=== PATIENT | female | born 1990 | race Caucasian/White ===

== ENCOUNTER → 2017-07-05 | Outpatient (CLI) | payer OTHER ==
[~2017-07-05] MED LIST: ACHD5005 PO; AMOX500T2 PO; DOCU100C37 PO; FAMO-119 PO; FERR325T18 PO; IBUP-1773 PO; PNT40TEC PO; PREN1TAB71 PO; PROM25SU10 PR
--- NOTE | 2017-07-06 13:35 | Diagnostic Imaging Report ---
INDICATION: Size and dates. TECHNIQUE: Multiple real-time grayscale images were obtained over the gravid uterus. COMPARISON: No prior examinations are available for comparison. FINDINGS: There is a single living intrauterine in a cephalic presentation. There is a normal volume of amniotic fluid. Placenta is posterior. There is no previa. The anatomical survey is unremarkable. The heart rate is 150 beats per minute. The biometry correlates with a gestational age of 19 weeks 2 days. Adnexa are grossly unremarkable. IMPRESSION: Single living intrauterine with a sonographically estimated gestational age of 19 weeks 2 days and estimated date of confinement of November 27, 2017. Dictated by: Dictated on workstation # [id number]
== END ==
LOC: RAD 16:06
PROVIDERS: ATTEND Obstetrics & Gynecology
DX: Z34.92 Encounter for supervision of normal pregnancy, unspecified, second trimester (principal); Z3A.19 19 weeks gestation of pregnancy
CPT/HCPCS: 76805

== ENCOUNTER 2017-08-15 23:21 | Outpatient (CLI) | payer OTHER ==
[~2017-08-15] VITALS: Ht 165.1 cm; Wt 63.1 kg
[2017-08-15 23:35] VITALS: BP 131/79
[2017-08-15] MEDS ORDERED: CETI10CA PO (23:58)
[2017-08-16] MEDS ORDERED: ONDANSETRON 4 MG/2 ML (SDV) Z0FRAN IVP ONE
[2017-08-16] MEDS ORDERED: D5 LR IV SOLUTION 1,000 ML IV ONE
[2017-08-16 00:30] LABS: BASOPHILS % (AUTO) 0 % (0-10); EOSINOPHILS % (AUTO) 0 % (0-10); HEMATOCRIT 34 % (35-52); HEMOGLOBIN 11.6 G/DL (11.5-16.0); LYMPHOCYTES # (AUTO) 0.5 X 10^3 (1.0-4.0); LYMPHOCYTES % (AUTO) 4 % (12-44); MEAN CORPUSCULAR HEMOGLOBIN 32 PG (25-34); MEAN CORPUSCULAR HGB CONC 34 G/DL (32-36); MEAN CORPUSCULAR VOLUME 95 FL (80-99); MEAN PLATELET VOLUME 10.1 FL (7.4-10.4); MONOCYTES # (AUTO) 0.4 X 10^3 (0.0-1.0); MONOCYTES % (AUTO) 3 % (0-12); NEUTROPHILS # (AUTO) 11.4 X 10^3 (1.8-7.8); NEUTROPHILS % (AUTO) 92 % (42-75); PLATELET COUNT 159 10^3/uL (130-400); RED BLOOD COUNT 3.61 10^6/uL (4.35-5.85); RED CELL DISTRIBUTION WIDTH 12.2 % (10.0-14.5); WHITE BLOOD COUNT 12.3 10^3/uL (4.3-11.0)
[2017-08-16 00:46] LABS: ALANINE AMINOTRANSFERASE 14 U/L (0-55); ALBUMIN 3.6 GM/DL (3.2-4.5); ALKALINE PHOSPHATASE 67 U/L (40-136); BAND NEUTROPHILS 0 %; BASOPHILS % (MANUAL) 0 %; BILIRUBIN,TOTAL 0.6 MG/DL (0.1-1.0); BUN/CREATININE RATIO 16; CALCIUM 8.1 MG/DL (8.5-10.1); CARBON DIOXIDE 18 MMOL/L (21-32); CHLORIDE 108 MMOL/L (98-107); CREATININE SERUM 0.56 MG/DL (0.60-1.30); EOSINOPHILS % (MANUAL) 1 %; GFR ESTIMATED > 60; GLUCOSE 82 MG/DL (70-105); LYMPHOCYTES % (MANUAL) 8 %; MONOCYTES % (MANUAL) 4 %; NEUTROPHILS % (MANUAL) 86 %; POTASSIUM 3.4 MMOL/L (3.6-5.0); RBC MORPH NORMAL; REACTIVE LYMPHOCYTES 1 %; SODIUM 137 MMOL/L (135-145); TOTAL PROTEIN 6.8 GM/DL (6.4-8.2)
[2017-08-16 00:48] LABS: BILIRUBIN,URINE NEGATIVE (NEGATIVE); CLARITY,URINE CLEAR; COLOR,URINE YELLOW; GLUCOSE, URINE (UA) NEGATIVE (NEGATIVE); KETONES,URINE 3+ (NEGATIVE); LEUKOCYTE ESTERASE ,URINE NEGATIVE (NEGATIVE); NITRITE,URINE NEGATIVE (NEGATIVE); PH,URINE 6 (5-9); PROTEIN,URINE 1+ (NEGATIVE); UROBILINOGEN,URINE NORMAL (NORMAL)
[2017-08-16 00:57] LABS: WBC,URINE RARE /HPF
[2017-08-16 00:58] LABS: BACTERIA,URINE TRACE /HPF
[2017-08-16 02:00] VITALS: BP 111/61
[2017-08-16] MEDS ORDERED: ACETAMINOPHEN 500 MG TAB (TYLENOL) ONE (04:02)
[2017-08-16] MEDS ORDERED: D5 LR IV SOLUTION 1,000 ML IV SCH (04:15)
[2017-08-16] MEDS ORDERED: ACETAMINOPHEN 500 MG TAB (TYLENOL) PO ONE (04:15)
[2017-08-16 07:23] VITALS: BP 105/59
--- NOTE | 2017-08-16 16:56 | Physician Query-Final Dx ---
EVANGELINA SHEARER 08/16/17 1656: Clinic Account Progress/Dx Physician Query: Please give diagnosis Date of Service Aug 15, 2017 at 23:21 GEORGE BROWN MD 08/17/17 0753: Clinic Account Progress/Dx DIAGNOSIS: Diagnosis Hyperemesis EVANGELINA SHEARER Aug 16, 2017 16:56 GEORGE BROWN MD Aug 17, 2017 07:53
== END 2017-08-16 07:35 | disposition home or self-care (01) ==
LOC: WSo 23:21 → LDRP 23:21 → WSo 08-16 07:35
PROVIDERS: ATTEND Obstetrics & Gynecology
DX: O21.2 Late vomiting of pregnancy (principal); Z3A.25 25 weeks gestation of pregnancy
CPT/HCPCS: 36415; 80053; 81000; 85007; 85027; 96361; 96374; 99213

== ENCOUNTER 2017-11-13 22:12 | Outpatient (CLI) | payer OTHER ==
[~2017-11-13 22:12] MED LIST changes: +CETI10CA PO
[2017-11-13 23:00] VITALS: BP 123/79
--- NOTE | 2017-11-14 15:50 | Physician Query-Final Dx ---
KASANDRA SANCHEZ 11/14/17 1550: Clinic Account Progress/Dx Physician Query: Please give diagnosis Date of Service Nov 13, 2017 at 22:12 GAVIN LOMAS DO 11/14/17 1839: Clinic Account Progress/Dx DIAGNOSIS: Diagnosis 38 week IUP Pelvic pressure KASANDRA SANCHEZ Nov 14, 2017 15:50 GAVIN LOMAS DO Nov 14, 2017 18:39
== END 2017-11-13 23:45 | disposition home or self-care (01) ==
LOC: WSo 22:12 → LDRP 22:13 → WSo 23:45
PROVIDERS: ATTEND Obstetrics & Gynecology
DX: O99.89 Other specified diseases and conditions complicating pregnancy, childbirth and the puerperium (principal); R10.2 Pelvic and perineal pain; Z3A.38 38 weeks gestation of pregnancy
CPT/HCPCS: 99212

== ENCOUNTER 2017-11-16 17:09 | Inpatient (IN) | payer OTHER ==
[~2017-11-16] VITALS: Ht 165.1 cm; Wt 73.0 kg
[2017-11-16] VITALS (27 sets, daily range): BP systolic 106–149; BP diastolic 58–82
[2017-11-16] MEDS ORDERED: LACTATED RINGERS 1,000 ML IV ONE ×3 (18:46→22:16)
[2017-11-16] MEDS ORDERED: D5 LR IV SOLUTION 1,000 ML IV ONE (18:46)
[2017-11-16] MEDS ORDERED: D5 LR IV SOLUTION 1,000 ML IV SCH (18:54)
[2017-11-16] MEDS ORDERED: MINERAL OIL CONCENTRATE 99.9% 15 ML UDC TOP PRN (19:00)
[2017-11-16] MEDS ORDERED: fentaNYL INJECTION 100 MCG/2 ML AMP ONE (19:06)
[2017-11-16] MEDS ORDERED: BUPIVACAINE 0.25% 30 ML (SENSORCAINE) VIAL ONE (19:07)
[2017-11-16 19:11] LABS: BASOPHILS % (AUTO) 0 % (0-10); EOSINOPHILS # (AUTO) 0.1 10^3/uL (0.0-0.3); EOSINOPHILS % (AUTO) 1 % (0-10); HEMATOCRIT 37 % (35-52); HEMOGLOBIN 12.8 G/DL (11.5-16.0); LYMPHOCYTES # (AUTO) 1.6 X 10^3 (1.0-4.0); LYMPHOCYTES % (AUTO) 14 % (12-44); MEAN CORPUSCULAR HEMOGLOBIN 32 PG (25-34); MEAN CORPUSCULAR HGB CONC 34 G/DL (32-36); MEAN CORPUSCULAR VOLUME 93 FL (80-99); MEAN PLATELET VOLUME 10.7 FL (7.4-10.4); MONOCYTES # (AUTO) 0.9 X 10^3 (0.0-1.0); MONOCYTES % (AUTO) 8 % (0-12); NEUTROPHILS # (AUTO) 8.9 X 10^3 (1.8-7.8); NEUTROPHILS % (AUTO) 77 % (42-75); PLATELET COUNT 153 10^3/uL (130-400); RED CELL DISTRIBUTION WIDTH 13.9 % (10.0-14.5); WHITE BLOOD COUNT 11.5 10^3/uL (4.3-11.0)
[2017-11-16] MEDS ORDERED: SUFENTA 0.6MCG/ML BUPIVA 0.125 100 ML ONE (19:17)
--- NOTE | 2017-11-16 19:19 | History & Physical-OB ---
OB - Chief Complaint & HPI Date/Time Date of Admission: Date of Admission: 11/16/2017 Time Seen by Provider: 18:35 Chief Complaint/History OB-Reason for Admission/Chief: Onset of Labor Hx : 2 Hx Para: 1 Expected Date of Delivery: Nov 22, 2017 Gestational Age in Weeks: 39 Gestational Age in Days: 1 Admission Nurse Assessment Rev: Yes History of Labs O pos Antibody neg RI RPR NR HBsAg NR HCAg NR GC neg GBS neg Allergies and Home Medications Allergies Coded Allergies: No Known Drug Allergies (Unverified , 07/25/14) Home Medications Cetirizine HCl 10 Mg Capsule, 10 MG PO DAILY, (Reported) Famotidine 20 Mg Tablet, 20 MG PO BID, (Reported) Patient Home Medication List Home Medication List Reviewed: Yes OB - History Hx of Present Care: Yes Ultrasounds: Normal mid trimester US Obstetrical Complications: None Medical Complications: None Delivery History Hx Blood Disorders: No Adverse Rxn to Tranfusion: No Patient Past Medical History none Social History/Family History HIV/AIDS: No Recent Infectious Disease Expo: No Sexually Transmitted Disease: No OB - Admission Exam Physical Exam HEENT: NCAT Heart: Rhythm Normal Lungs: Clear Abdomen: Gravid Extremities: Normal Reflexes: Normal Cervical Dilatation: 5cm Effacement: 75% Station: -1 Membranes: Intact Heart Rate: 130's Accelerations: Accelerations Present Decelerations: No Decelerations Short Term Variability: Present Composing Machine Operator/Tender Variability: Average (6-25) Contractions on Admission: < 5 Minutes Apart Intensity: Moderate Labs Laboratory Tests Test 11/16/17 18:35 Range/Units OB - Assessment/Plan/Diagnosis Assessment Assessment: active labor Admission Dx 27 yo @ 39.1 Active Labor TOLAC GBS neg Admission Status: Inpatient Order (span 2 midnights) Reason for Inpatient Admission: 27 yo @ 39.1 Active Labor TOLAC GBS neg Plan Plan: Expectant Management Induction Method: GAVIN SAINZ DO Nov 16, 2017 7:19 pm
[2017-11-16] MEDS ORDERED: OXYTOCIN/NORMAL SALINE 500 ML IV ONE (20:33)
[2017-11-16] MEDS ORDERED: LIDOCAINE/EPI 2% 1:200,00 (XYLOCAINE) 10 ML VIAL ONE (20:34)
[2017-11-16] MEDS ORDERED: OXYTOCIN/NORMAL SALINE 500 ML IV SCH (21:08)
--- NOTE | 2017-11-16 21:12 | OB Labor & Delivery Record ---
L&D History Date of Service Date of Service: Nov 16, 2017 History Expected Date of Delivery: Nov 22, 2017 Gestational Age in Weeks: 39 Hx : 2 Hx Para: 1 Complications Events: Routine care Operative Indications (Cesarea: N/A-Vaginal Delivery Intrapartal Events: None L&D Stage1 Stage One Onset of Labor - Date: Nov 16, 2017 Monitors and Tracing Monitor Mode: External Heart Rate: 140 Monitor Decelerations: None Station: -1 Penitentiary Variability: Average (6-10) Short Term Variability: Present Presentation: Vertex Vital Signs VS - Last 72 Hours, by Label 11/16/17 17:33 Temp 98.4 Pulse 95 Resp 16 O2 Delivery Room Air Rupture of Membranes Spontaneous Ruture of Membrane: No Amniotic Membrane Rupture Time: 1899 Amniotic Membrane Fluid Desc.: Clear Vaginal Bleeding Description: Normal Show Induction/Anesthesia Epidural Cath Placement - Time: 1928 Progress/Notes Patient progressed to complete and +2 station shortly after epidural obtained, without any augmentation other than AROM L&D Stage2 Stage Two Stage II Date: Nov 16, 2017 Monitors and Tracing Monitor Mode: External Heart Rate: 140 Monitor Accelerations: Uniform Monitor Decelerations: Variable Residential Building Inspector Variability: Average (6-10) Short Term Variability: Present Position: Right Occiput Anterior Presentation: Vertex Cord Descript/Complications Cord Vessel Description: 3 Vessels Delivery Type Infant Delivery Method: Spontaneous Vaginal Anterior Shoulder: Left Episiotomy/Perineal Laceration Laceraction(s)/Extensions: Yes Episiotomy Description: Midline Degree (describe repair) midline episiotomy repaired using 3-0 and 2-0 vicryl suture in usual fashion Condition of Infant Delivery 1 minute Comment: 8 5 minute Comment: 9 Notes live female infant weight pending. Condition of Condition of : Living Exam: No Observed Abnormalities Resuscitation Resuscitation: N/A - Spontaneous Resp L&D Stage3 Stage Three Stage III Date: Nov 16, 2017 Pictocin Pitocin Administration Comment: 30 mu wide open at delivery of placenta Placenta Delivery Placenta Delivery: Spontaneous Delivery Summary Summary Estimated blood loss (mL): 400 Attending at delivery: Gavin Lomas DO Condition of Delivery Examined: Cervix Examined, Uterus Explored Post Hemorrhage: No Condition of Mother stable Condition of (s) stable GAVIN LOMAS DO Nov 16, 2017 21:12
--- NOTE | 2017-11-16 21:13 | Discharge Inst-Women's Service ---
Discharge Inst-Women's Serv Depart Medication/Instructions New, Converted or Re-Newed RX: RX on Chart Consults/Follow Up Additional Follow Up: Yes Orders/Referrals Dr. Lomas in 6 weeks Activity Activity: Activity as Tolerated Driving Instructions: No Driving for 1 Week NO SMOKING: NO SMOKING Nothing Inside Vagina: No Douching, No Cameron, No Tampons Diet Discharge Diet: No Restrictions Symptoms to Report to : Bleeding Excessive, Pain Increased, Fever Over 101 Degrees F, Vaginal Bleeding Increase, Questions/Concerns For Any Problems or Questions: Contact Your Physician GAVIN LOMAS DO Nov 16, 2017 21:13
[2017-11-16] MEDS ORDERED: IBUP-844 PO (21:15)
[2017-11-16] MEDS ORDERED: ACHD5005 PO (21:15)
[2017-11-16] MEDS ORDERED: TETANUS,DIPTH,PERTUSS P/F (BOOSTRIX) 0.5 ML VIAL IM ONE (21:15)
[2017-11-16] MEDS ORDERED: MEASLES,MUMPS,RUBELLA 1 EA INJ SQ ONE (21:15)
[2017-11-16] MEDS ORDERED: DIBUCAINE (NUPERCAINAL) 1% OINT 30 GM TOP PRN (21:15)
[2017-11-16] MEDS ORDERED: FERR325T18 PO (21:15)
[2017-11-16] MEDS ORDERED: DOCU100C37 PO (21:15)
[2017-11-16] MEDS ORDERED: Benzocaine/Menthol TP (21:15)
[2017-11-16] MEDS ORDERED: DIBU30OI TOP (21:15)
[2017-11-16] MEDS ORDERED: HYDROcodone/APAP 5 MG/325 MG (LORTAB) TAB PO PRN (21:15)
[2017-11-16] MEDS ORDERED: BENZOCAINE/MENTHOL (DERMOPLAST) 56 ML CAN TP PRN (21:15)
[2017-11-16] MEDS: WITCH HAZEL(TUCKS) 40 EA JAR TOP PRN (21:33)
[2017-11-16] MEDS: IBUPROFEN 600 MG (MOTRIN) TAB PO SCH (21:33)
[2017-11-16] MEDS: CATHETER FLUSH 10 ML SYR IV SCH (22:00)
[2017-11-16] MEDS ORDERED: CATHETER FLUSH 10 ML SYR IV SCH (22:00)
[2017-11-16] MEDS ORDERED: ONDANSETRON 4 MG/2 ML (SDV) Z0FRAN IV PRN (22:30)
[2017-11-16] MEDS ORDERED: EPIDURAL (SUFENTA 0.6MCG/ML BUPIVA 0.125%) 100 ML BAG EPI PRN (22:30)
[2017-11-16] MEDS ORDERED: NALOXONE 0.4 MG/ML 1 ML (NARCAN) VIAL IV PRN (22:30)
[2017-11-17] MEDS: CATHETER FLUSH 10 ML SYR IV SCH (03:45)
[2017-11-17] MEDS: IBUPROFEN 600 MG (MOTRIN) TAB PO SCH ×4 (03:45→22:01)
[2017-11-17] MEDS ORDERED: CALCIUM CARBONATE 500 MG (TUMS) TAB.CHEW ONE (03:48)
[2017-11-17 04:00] VITALS: BP 102/55
[2017-11-17 05:49] LABS: BASOPHILS % (AUTO) 0 % (0-10); EOSINOPHILS # (AUTO) 0.1 10^3/uL (0.0-0.3); EOSINOPHILS % (AUTO) 1 % (0-10); HEMATOCRIT 32 % (35-52); HEMOGLOBIN 11.1 G/DL (11.5-16.0); LYMPHOCYTES % (AUTO) 15 % (12-44); MEAN CORPUSCULAR HEMOGLOBIN 33 PG (25-34); MEAN CORPUSCULAR HGB CONC 35 G/DL (32-36); MEAN CORPUSCULAR VOLUME 93 FL (80-99); MEAN PLATELET VOLUME 10.8 FL (7.4-10.4); MONOCYTES # (AUTO) 1.3 X 10^3 (0.0-1.0); MONOCYTES % (AUTO) 10 % (0-12); NEUTROPHILS # (AUTO) 9.8 X 10^3 (1.8-7.8); NEUTROPHILS % (AUTO) 74 % (42-75); PLATELET COUNT 143 10^3/uL (130-400); RED BLOOD COUNT 3.39 10^6/uL (4.35-5.85); RED CELL DISTRIBUTION WIDTH 13.7 % (10.0-14.5); WHITE BLOOD COUNT 13.2 10^3/uL (4.3-11.0)
--- NOTE | 2017-11-17 07:51 | Postpartum Progress Note ---
Note Note Day # 1 Subjective: Patient is without complaints. Ambulating, voiding. Tolerating a regular diet without nausea or vomiting. Normal lochia. Pain is well controlled with oral pain medications. Objective: Vital Sign - Last 24 Hours 11/16/17 11/16/17 11/16/17 11/16/17 17:33 19:25 19:28 19:31 Temp 98.4 97.2 Pulse 95 93 89 86 Resp 16 18 18 18 B/P (MAP) 133/79 (97) 127/76 (93) 131/77 (95) Pulse Ox 100 100 O2 Delivery Room Air Room Air 11/16/17 11/16/17 11/16/17 11/16/17 19:34 19:37 19:40 19:43 Pulse 92 94 77 113 Resp 18 18 18 18 B/P (MAP) 126/72 (90) 123/68 (86) 126/76 (93) 149/78 (101) Pulse Ox 100 100 100 100 11/16/17 11/16/17 11/16/17 11/16/17 19:50 19:55 20:00 20:10 Temp 97.8 Pulse 100 74 76 75 Resp 18 18 18 18 B/P (MAP) 126/71 (89) 135/65 (88) 129/61 (83) 106/58 (74) Pulse Ox 100 100 100 100 11/16/17 11/16/17 11/16/17 11/16/17 20:25 20:35 20:45 20:55 Pulse 118 126 137 106 Resp 18 18 18 18 B/P (MAP) 110/71 (84) 111/82 (92) 128/75 (92) 128/71 (90) Pulse Ox 100 100 100 100 11/16/17 11/16/17 11/16/17 11/16/17 21:08 21:25 21:40 21:55 Pulse 98 84 88 79 Resp 18 18 18 18 B/P (MAP) 118/66 (83) 110/62 (78) 116/60 (78) 115/63 (80) Pulse Ox 100 100 100 100 11/16/17 11/16/17 11/16/17 11/16/17 22:10 22:22 22:37 22:53 Temp 97.2 Pulse 88 82 99 127 Resp 18 18 18 18 B/P (MAP) 120/67 (84) 109/64 (79) 111/67 (82) 126/77 (93) Pulse Ox 100 11/16/17 11/16/17 11/16/17 11/16/17 23:07 23:22 23:37 23:52 Temp 97.8 Pulse 114 102 104 108 Resp 18 18 18 18 B/P (MAP) 131/81 (98) 107/81 (90) 110/71 (84) 119/74 (89) 11/17/17 04:00 Temp 97.8 Pulse 76 Resp 18 B/P (MAP) 102/55 (71) Intake and Output 11/16/17 11/16/17 11/17/17 15:00 23:00 07:00 Intake Total 1500 ml 1300 ml Output Total 200 ml Balance 1300 ml 1300 ml Physical Exam: General - Alert and oriented, no apparent distress Abdomen - Soft, appropriately tender to palpation, non-distended, fundus firm at umbilicus Extremities - no edema, negative Christiane's bilaterally Assessment: PPD 1 NVD- successful Acute blood loss anemia Plan: Routine care. Encourage breast feeding. Encourage ambulation. Ferrous sulfate supplementation. Plan for discharge tomorrow Vitals - Labs Vital Signs - I&O Vital Signs Date Time Temp Pulse Resp B/P (MAP) Pulse Ox O2 Delivery O2 Flow Rate FiO2 11/17/17 04:00 97.8 76 18 102/55 (71) 11/16/17 23:52 97.8 108 18 119/74 (89) 11/16/17 23:37 104 18 110/71 (84) 11/16/17 23:22 102 18 107/81 (90) 11/16/17 23:07 114 18 131/81 (98) 11/16/17 22:53 127 18 126/77 (93) 11/16/17 22:37 99 18 111/67 (82) 11/16/17 22:22 82 18 109/64 (79) 11/16/17 22:10 97.2 88 18 120/67 (84) 100 11/16/17 21:55 79 18 115/63 (80) 100 11/16/17 21:40 88 18 116/60 (78) 100 11/16/17 21:25 84 18 110/62 (78) 100 11/16/17 21:08 98 18 118/66 (83) 100 11/16/17 20:55 106 18 128/71 (90) 100 11/16/17 20:45 137 18 128/75 (92) 100 11/16/17 20:35 126 18 111/82 (92) 100 11/16/17 20:25 118 18 110/71 (84) 100 11/16/17 20:10 75 18 106/58 (74) 100 11/16/17 20:00 76 18 129/61 (83) 100 11/16/17 19:55 74 18 135/65 (88) 100 11/16/17 19:50 97.8 100 18 126/71 (89) 100 11/16/17 19:43 113 18 149/78 (101) 100 11/16/17 19:40 77 18 126/76 (93) 100 11/16/17 19:37 94 18 123/68 (86) 100 11/16/17 19:34 92 18 126/72 (90) 100 11/16/17 19:31 86 18 131/77 (95) 100 11/16/17 19:28 89 18 127/76 (93) 100 11/16/17 19:25 97.2 93 18 133/79 (97) Room Air 11/16/17 17:33 98.4 95 16 Room Air I & O 11/17/17 07:00 Intake Total 2800 ml Output Total 200 ml Balance 2600 ml Labs Laboratory Tests 11/16/17 18:35: White Blood Count 11.5H, Red Blood Count 4.00L, Hemoglobin 12.8, Hematocrit 37, Mean Corpuscular Volume 93, Mean Corpuscular Hemoglobin 32, Mean Corpuscular Hemoglobin Concent 34, Red Cell Distribution Width 13.9, Platelet Count 153, Mean Platelet Volume 10.7H, Neutrophils (%) (Auto) 77H, Lymphocytes (%) (Auto) 14, Monocytes (%) (Auto) 8, Eosinophils (%) (Auto) 1, Basophils (%) (Auto) 0, Neutrophils # (Auto) 8.9H, Lymphocytes # (Auto) 1.6, Monocytes # (Auto) 0.9, Eosinophils # (Auto) 0.1, Basophils # (Auto) 0.0 11/17/17 05:30: White Blood Count 13.2H, Red Blood Count 3.39L, Hemoglobin 11.1L, Hematocrit 32L , Mean Corpuscular Volume 93, Mean Corpuscular Hemoglobin 33, Mean Corpuscular Hemoglobin Concent 35, Red Cell Distribution Width 13.7, Platelet Count 143, Mean Platelet Volume 10.8H, Neutrophils (%) (Auto) 74, Lymphocytes (%) (Auto) 15 , Monocytes (%) (Auto) 10, Eosinophils (%) (Auto) 1, Basophils (%) (Auto) 0, Neutrophils # (Auto) 9.8H, Lymphocytes # (Auto) 2.0, Monocytes # (Auto) 1.3H, Eosinophils # (Auto) 0.1, Basophils # (Auto) 0.0 GAVIN LOMAS DO Nov 17, 2017 7:51 am
[2017-11-17] MEDS: DOCUSATE SODIUM 100 MG (COLACE) CAP PO SCH ×2 (08:46→22:01)
[2017-11-17] MEDS: PRENATAL VITAMIN 1 EA TAB PO SCH (08:46)
[2017-11-17] MEDS: FERROUS SULF 325 MG (IRON) TAB PO SCH (08:46)
[2017-11-17 09:05] VITALS: BP 114/75
[2017-11-17 12:00] VITALS: BP 101/66
[2017-11-17 16:45] VITALS: BP 94/54
[2017-11-17 22:01] VITALS: BP 104/72
[2017-11-18] MEDS: CALCIUM CARBONATE 500 MG (TUMS) TAB.CHEW PO PRN ×2 (00:45→00:46)
[2017-11-18] MEDS: WITCH HAZEL(TUCKS) 40 EA JAR TOP PRN (00:46)
[2017-11-18 04:07] VITALS: BP 110/76
[2017-11-18] MEDS: IBUPROFEN 600 MG (MOTRIN) TAB PO SCH ×2 (04:07→09:56)
[2017-11-18 08:45] VITALS: BP 123/80
[2017-11-18] MEDS: PRENATAL VITAMIN 1 EA TAB PO SCH (08:49)
[2017-11-18] MEDS: DOCUSATE SODIUM 100 MG (COLACE) CAP PO SCH (08:49)
[2017-11-18] MEDS: FERROUS SULF 325 MG (IRON) TAB PO SCH (08:49)
--- NOTE | 2017-11-18 10:16 | Postpartum Progress Note ---
Note Note Day # 2 Subjective: Patient is without complaints. Ambulating, voiding. Tolerating a regular diet without nausea or vomiting. Normal lochia. Pain is well controlled with oral pain medications. Objective: Vital Sign - Last 24 Hours 11/17/17 11/17/17 11/17/17 11/18/17 12:00 16:45 22:01 04:07 Temp 97.9 98.2 98.4 98.2 Pulse 64 67 67 61 Resp 18 18 18 18 B/P (MAP) 101/66 (78) 94/54 (67) 104/72 (83) 110/76 (87) Pulse Ox 98 99 98 98 O2 Delivery Room Air Room Air Room Air Room Air 11/18/17 08:45 Temp 99.0 Pulse 89 Resp 18 B/P (MAP) 123/80 (94) Pulse Ox 97 O2 Delivery Room Air Physical Exam: General - Alert and oriented, no apparent distress Abdomen - Soft, appropriately tender to palpation, non-distended, fundus firm at umbilicus Extremities - no edema, negative Christiane's bilaterally Assessment: PPD 2 NVD Successful Plan: Routine care. Encourage breast feeding. Encourage ambulation. Ferrous sulfate supplementation. Plan for discharge today Vitals - Labs Vital Signs - I&O Vital Signs Date Time Temp Pulse Resp B/P (MAP) Pulse Ox O2 Delivery O2 Flow Rate FiO2 11/18/17 08:45 99.0 89 18 123/80 (94) 97 Room Air 11/18/17 04:07 98.2 61 18 110/76 (87) 98 Room Air 11/17/17 22:01 98.4 67 18 104/72 (83) 98 Room Air 11/17/17 16:45 98.2 67 18 94/54 (67) 99 Room Air 11/17/17 12:00 97.9 64 18 101/66 (78) 98 Room Air GAVIN LOMAS DO Nov 18, 2017 10:16 am
--- NOTE | 2017-11-18 11:57 | Anesthesia-Regional Post-Op ---
Regional Patient Condition Mental Status: Alert, Oriented x3 Circulation: Same as Pre-Op Headache: Absent Sensation: Full Recovery Motor Block: Absent Post Op Complications Complications None Follow Up Care/Instructions Patient Instructions None needed. Anesthesia/Patient Condition Late entry from seeing patient at 1200 on 11/17/17: Patient is doing well, no complaints, stable vital signs, no apparent adverse anesthesia problems. No complications reported per nursing. ALEX MARTINEZ HEAD COUNSELOR Nov 18, 2017 11:57
[2017-11-18 12:15] VITALS: BP 123/80
--- NOTE | 2017-11-21 12:16 | Physician Query-Final Dx ---
SABAS WRIGHT 11/21/17 1216: Final Diagnosis Give Final Diagnosis Please give Final Diagnosis GAVIN LOMAS DO 11/22/17 0725: Final Diagnosis Give Final Diagnosis PPD 2 NVD SABAS WRIGHT Nov 21, 2017 12:16 GAVIN LOMAS DO Nov 22, 2017 07:25
== END 2017-11-18 12:15 | disposition home or self-care (01) | DRG 775 ==
LOC: LDRP 17:09 → WSo 17:09 → LDRP 17:40
PROVIDERS: ADMIT Obstetrics & Gynecology; ATTEND Obstetrics & Gynecology
PROC: 10E0XZZ Delivery of Products of Conception, External Approach (ICD-10-PCS; principal; 2017-11-16)
PROC: 0W8NXZZ Division of Female Perineum, External Approach (ICD-10-PCS; 2017-11-16)
DX: O90.81 Anemia of the puerperium (principal); Z3A.39 39 weeks gestation of pregnancy; Z37.0 Single live birth
CPT/HCPCS: 36415; 85025; 99212